=== PATIENT | female | born 1980 | race Caucasian/White ===

== ENCOUNTER 2016-07-22 10:13 | Day surgery (SDC) | payer BC, OTHER ==
--- NOTE | 2016-07-22 11:09 | OR ---
Anesthesia Pre Procedure Eval Date of Service: 07/22/16 Pre Procedure Evaluation: Last Vital Signs Temp 36.6 C 07/22/16 10:21 Pulse 81 07/22/16 10:21 Resp 14 07/22/16 10:21 BP 107/71 07/22/16 10:21 Pulse Ox 100 07/22/16 10:21 O2 Oxygen Delivery Method Room Air DATE: 07/22/2016 TIME: 1105 INDICATIONS: Headaches, abnormal MRI, tingling right hand and foot PAST MEDICAL HISTORY: Ms. Montez has had a several year history of headaches has had an abnormal MRI. Nearly 3 years ago she had a lumbar puncture, there have been no changes in the MRI since the last lumbar puncture however she has developed tingling and numbness in her right fingers and toes. The tingling and numbness appear to be more prominent during exercise. EXAM: Heart regular; lungs clear ASSESSMENT OF MEDICAL STATUS: She is on no anticoagulants the risks and procedure were discussed and she accepts the procedure. She is an appropriate candidate for lumbar puncture. PLANNED PROCEDURE: Lumbar puncture for diagnosis. Home Medications: HOME MEDICATIONS Gabapentin [Neurontin] 300 mg PO BID 07/22/16 [Last Taken Unknown] Norgestrel-Ethinyl Estradiol [Bna-Mzpuxysi-15 Tablet] 1 each PO DAILY 07/22/16 [ Last Taken Unknown] Venlafaxine HCl [Effexor Xr] 150 mg PO DAILY 07/22/16 [Last Taken Unknown]
--- NOTE | 2016-07-22 11:50 | OR ---
Anesthesia Procedure Note - Anesthesia Procedure Note Date of Service: 07/22/16 Narrative: Vital Signs - Last Taken Temp 36.6 C 07/22/16 10:21 Pulse 81 07/22/16 10:21 Resp 14 07/22/16 10:21 BP 107/71 07/22/16 10:21 Pulse Ox 100 07/22/16 10:21 O2 Oxygen Delivery Method Room Air 07/22/16 11:48 ANESTHESIA PROCEDURE NOTE Date of Procedure: 07/22/2016 Time of procedure: 11:30. Performed by: YORDAN Lang CRNA, MSN [employer] Operator: Lissette Stafford RN. Preprocedure diagnosis: Tingling and numbness in the right fingers and toes, headaches, abnormal MRI. Post procedure diagnosis: Same. Procedure: Lumbar Puncture L3 4. Indications: Tingling and numbness right fingers and toes, abnormal MRI. Findings: See below. Details of the procedure: The patient was placed in right lateral position the back was prepped with Duraprep and draped in a sterile fashion. The L L3 4 interspace was localized with 1% lidocaine solution. Using a #22-gauge Bocanegra needle the CSF was contacted and clear CSF returned. The opening pressure measured 17.2 centimeters water pressure. 4 vials of CSF were harvested. The spinal needle was then removed and a Band-Aid was applied. EBL: Minimal. Fluids: N/A. Specimen:3vials of clear CSF2 milliliters each, 1 vial of CSF with 7 mL. Post procedure condition: The patient tolerated the procedure well. No complications were noted. Thank you for this consultation. Hilario Murray CRNA, ARNP, MSN
[2016-07-22 12:15] LABS: CSF Appearance Clear (CLEAR); CSF Color Colorless (COLORLESS)
[2016-07-22 12:15] LABS: CSF Appearance Clear (CLEAR); CSF Color Colorless (COLORLESS); CSF RBC 0 /uL (0-10); CSF WBC 0 /uL (0-10)
[2016-07-22 12:16] LABS: CSF RBC 0 /uL (0-10); CSF WBC 0 /uL (0-10)
[2016-07-22 12:28] VITALS: BP 107/65
[2016-07-25 17:07] LABS: ACE 32 U/L (9-67); CSF Oligoclonal Bands NO BANDS (NO BANDS)
[2016-07-27 06:26] LABS: CSF IgG Index 0.54
== END 2016-07-22 10:14 | disposition home or self-care (01) ==
LOC: AMB 10:13
PROVIDERS: ATTEND Nurse Practitioner
PROC: 009U3ZX Drainage of Spinal Canal, Percutaneous Approach, Diagnostic (ICD-10-PCS; principal; 2016-07-22 11:25)
DX: R51 Headache (principal); R20.2 Paresthesia of skin; R20.0 Anesthesia of skin